=== PATIENT | male | born 1950 | race Native Hawaiian/Other Pacific Islander ===

== ENCOUNTER 2021-04-18 18:56 | Emergency (ER) | payer OTHER ==
[~2021-04-18] VITALS: Ht 180.3 cm; Wt 73.0 kg
[2021-04-18 18:56] VITALS: BP 132/66; TEMP 99.2
[2021-04-18 19:16] LABS: PLATELET COUNT 176 K/uL (142-355)
[2021-04-18 19:20] LABS: POTASSIUM 2.9 mmol/L (3.6-5.2)
[2021-04-19] MEDS ORDERED: BUSP5TAB2 PO (01:19)
[2021-04-19] MEDS ORDERED: LISI5TAB10 PO (01:19)
[2021-04-19] MEDS ORDERED: LIPITOR20 MG PO (01:21)
[2021-04-19] MEDS ORDERED: TAMS0.4C PO (01:22)
[2021-04-19] MEDS ORDERED: OXCARBAZEPIN300 MG PO (01:23)
[2021-04-19] MEDS ORDERED: DRONABINOL5 MG PO (01:24)
[2021-04-19] MEDS ORDERED: MELATONIN3 M1 PO (01:26)
[2021-04-19] MEDS ORDERED: KLOR-CON M2020 MEQ PO (01:27)
[2021-04-19] MEDS ORDERED: TYLENOL325 MG PO (01:29)
== END 2021-04-18 21:56 | disposition still patient (30) ==
LOC: ED 18:56
PROVIDERS: Emergency Medicine
DX: G30.9 Alzheimer's disease, unspecified (principal); F02.81 Dementia in other diseases classified elsewhere, unspecified severity, with behavioral disturbance; R45.1 Restlessness and agitation; E87.6 Hypokalemia; R50.9 Fever, unspecified; D64.89 Other specified anemias; Z11.52 Encounter for screening for COVID-19; Z04.6 Encounter for general psychiatric examination, requested by authority
CPT/HCPCS: 36415; 80053; 85027; 87635; 93005; 99283; U0003